=== PATIENT | female | born 1945 | race Hispanic/Latino ===

== ENCOUNTER → 2018-02-25 | Outpatient (CLI) | payer OTHER | END | disposition home or self-care (01) | LOC: RAH 09:08 | PROVIDERS: ATTEND Family Medicine | DX: Z12.31 Encounter for screening mammogram for malignant neoplasm of breast (principal) | CPT/HCPCS: 77067 ==

== ENCOUNTER → 2019-09-19 | Outpatient (CLI) | payer OTHER | END | disposition home or self-care (01) | LOC: RAH 08:58 | PROVIDERS: ATTEND Internal Medicine Gastroenterology | DX: K83.8 Other specified diseases of biliary tract (principal); R59.0 Localized enlarged lymph nodes | CPT/HCPCS: 76700 ==

== ENCOUNTER 2019-10-27 19:59 | Inpatient (IN) | payer OTHER ==
[~2019-10-27] VITALS: Ht 152.4 cm; Wt 51.0 kg
[2019-10-27] MEDS ORDERED: ACETAMINOPHEN 650 MG SUPPOSITORY RC ONE (20:13)
[2019-10-27 20:26] LABS: BASOPHILS % (AUTO) 0.2 % (0.0-5.0); HEMATOCRIT 38.9 % (36-48); MEAN CORPUSCULAR HEMOGLOBIN 28.6 pg (27.0-33.0); MEAN CORPUSCULAR HGB CONC 32.1 g/dL (32.0-36.0); MONOCYTES % (AUTO) 6.6 % (3.0-13.0); NEUTROPHILS % (AUTO) 82.6 % (40.0-77.0); PLATELET COUNT (AUTO) 310 K/uL (130-400); RED BLOOD CELL COUNT(AUTO) 4.37 MIL/uL (4.00-5.50); RED CELL DISTRIBUTION WIDTH 14.1 % (11.0-15.5)
[2019-10-27] MEDS ORDERED: VANCOMYCIN 1GM+NS 250ML 250 ML IV ONE (20:38)
[2019-10-27 20:42] LABS: INR 1.01 (0.85-1.15); PARTIAL THROMBOPLASTIN TIME 23.2 SEC (26.3-35.5); PROTHROMBIN TIME 10.9 SEC (9.6-11.6)
[2019-10-27 21:24] LABS: ALANINE AMINOTRANSFERASE 20 U/L (12-78); ALBUMIN 3.9 g/dL (3.5-5.0); ASPARTATE AMINOTRANSFERASE 37 U/L (10-37); BILIRUBIN,TOTAL 0.8 mg/dL (0.2-1.0); CARBON DIOXIDE 25 mmol/L (21-32); CHLORIDE 115 mmol/L (101-111); CREATINE KINASE, TOTAL 15 U/L (21-232); CREATININE 1.5 mg/dL (0.5-1.5); GLOMERULAR FILTR. RATE CALC 36 mL/min (>60); GLUCOSE,RANDOM 155 mg/dL (70-105); MYOGLOBIN 111 ng/mL (10-92); TROPONIN I < 0.04 ng/mL (0.00-0.06); UREA NITROGEN, BLOOD 42 mg/dL (7-18)
[2019-10-27 21:27] LABS: POTASSIUM 2.6 mmol/L (3.5-5.1); SODIUM SERUM 161 mmol/L (136-145)
[2019-10-27] MEDS ORDERED: ZOSYN 3.375GM+NS 50ML 50 ML IV ONE (21:36)
[2019-10-27] MEDS ORDERED: LACTATED RINGERS 1000ML 1,000 ML IV SCH (21:55)
[2019-10-27] MEDS ORDERED: VANCOMYCIN PROTOCOL PER PHARMACY IV PRN (22:00)
[2019-10-27] MEDS ORDERED: NITROGLYCERIN 0.4 MG SL TAB SL PRN (22:00)
[2019-10-27] MEDS: METRONIDAZOLE 500MG/100ML BAG 100 ML IVPB SCH (22:00)
[2019-10-27] MEDS ORDERED: ACETAMINOPHEN 325 MG TAB PO PRN ×2 (22:00)
[2019-10-27] MEDS ORDERED: MAG HYDROX/AL HYDROX/SIMETH ES 30 ML SUSP UDCUP PO PRN (22:00)
[2019-10-27] MEDS ORDERED: DIPHENHYDRAMINE HCL 25 MG CAPSULE PO PRN (22:00)
[2019-10-27] MEDS ORDERED: LIDOCAINE HCL 2% VISCOUS 30 ML, MAG HYDROX/AL HYDROX/SIMETH 30 ML, BELLADONNA-PHENOBARB... PO PRN ×3 (22:00)
[2019-10-27] MEDS ORDERED: GUAIFENESIN-DM 200/20 MG 10 ML PO PRN (22:00)
[2019-10-27] MEDS ORDERED: ZOLPIDEM TARTRATE 5 MG TAB PO PRN (22:00)
[2019-10-27] MEDS ORDERED: DiphenhydrAMINE HCL 50 MG/ML VIAL IV PRN (22:00)
[2019-10-27] MEDS ORDERED: BENZONATATE 100 MG CAPSULE PO PRN (22:00)
[2019-10-27] MEDS ORDERED: MORPHINE SULFATE 2 MG/ML 1ML SYG IV PRN (22:00)
[2019-10-27] MEDS ORDERED: MORPHINE SULFATE 4 MG/1ML SYG IV PRN (22:00)
[2019-10-27] MEDS ORDERED: MAG HYDROX/AL HYDROX/SIMETH 30 ML, LIDOCAINE HCL 2% VISCOUS 30 ML, DIPHENHYDRAMINE HCL ... PO PRN ×3 (22:00)
[2019-10-27] MEDS ORDERED: LACTULOSE 20 GM/30 ML UDCUP PO PRN (22:00)
[2019-10-27] MEDS ORDERED: ONDANSETRON HCL 4 MG/2 ML VIAL IV PRN (22:00)
[2019-10-27] MEDS ORDERED: POTASSIUM BICARB/CIT AC 25 MEQ TABLET.EFF ONE (22:22)
[2019-10-27] MEDS: POTASSIUM CHLORIDE 10% ELIXIR 20 MEQ/15 ML UDCUP PEG SCH (22:30)
[2019-10-27] MEDS ORDERED: POTASSIUM CHLORIDE 10% ELIXIR 20 MEQ/15 ML UDCUP ONE (22:42)
[2019-10-27] MEDS ORDERED: POTASSIUM CHLORIDE 20MEQ/100ML 100 ML IV ONE (22:42)
[2019-10-27] MEDS ORDERED: LACTATED RINGERS 1000ML 1,000 ML IV ONE (22:43)
[2019-10-27] MEDS ORDERED: METRONIDAZOLE 500MG/100ML BAG 100 ML ONE (22:43)
[2019-10-27] MEDS ORDERED: CEFEPIME HCL 2 GM VIAL ONE (23:17)
[2019-10-28] MEDS: CEFEPIME HCL 1 GM VIAL IVP SCH
[2019-10-28 00:42] LABS: CREATININE 1.4 mg/dL (0.5-1.5); POTASSIUM 3.5 mmol/L (3.5-5.1)
[2019-10-28] MEDS ORDERED: ONDANSETRON HCL 4 MG/2 ML VIAL ONE (01:43)
[2019-10-28 01:57] LABS: APPEARANCE,URINE Clear (CLEAR); BILIRUBIN,URINE Negative (NEGATIVE); COLOR,URINE Yellow (YELLOW); GLUCOSE, URINE (UA) Negative (NEGATIVE); KETONES,URINE 15 mg/dL (NEGATIVE); LEUKOCYTE ESTERASE ,URINE Small (NEGATIVE); NITRATE,URINE Negative (NEGATIVE); OCCULT BLOOD,URINE Negative (NEGATIVE); PROTEIN,URINE POS 1+ mg/dL (NEGATIVE); UROBILINOGEN,URINE 0.2 mg/dL (0.2-1.0)
[2019-10-28 02:13] LABS: BACTERIA,URINE None Seen /HPF (None Seen); RBC,URINE None Seen /HPF (0-1); SQUAMOUS EPITHELIAL CELL,UR Rare /HPF (0-2); WBC,URINE 0-1 /HPF (0-1)
[2019-10-28 05:25] LABS: BASOPHILS % (AUTO) 0.3 % (0.0-5.0); HEMATOCRIT 31.7 % (36-48); LYMPHOCYTES % (AUTO) 10.5 % (21.0-51.0); MEAN CORPUSCULAR HEMOGLOBIN 29.1 pg (27.0-33.0); MEAN CORPUSCULAR HGB CONC 32.2 g/dL (32.0-36.0); MEAN CORPUSCULAR VOLUME 90.3 fL (79-99); MONOCYTES % (AUTO) 7.6 % (3.0-13.0); PLATELET COUNT (AUTO) 212 K/uL (130-400); RED BLOOD CELL COUNT(AUTO) 3.51 MIL/uL (4.00-5.50); RED CELL DISTRIBUTION WIDTH 14.3 % (11.0-15.5); WHITE BLOOD COUNT (AUTO) 11.3 K/uL (4.8-10.8)
[2019-10-28 05:50] LABS: ALBUMIN 2.9 g/dL (3.5-5.0); BILIRUBIN,TOTAL 0.8 mg/dL (0.2-1.0); MAGNESIUM 2.1 mg/dL (1.80-2.40); PHOSPHORUS 1.9 mg/dL (2.5-4.9); POTASSIUM 4.2 mmol/L (3.5-5.1); TOTAL PROTEIN, SERUM 6.1 g/dL (6.0-8.3)
[2019-10-28] MEDS: METRONIDAZOLE 500MG/100ML BAG 100 ML IVPB SCH ×3 (06:00→21:56)
[2019-10-28] MEDS: HEPARIN SODIUM 5000UNIT/ML 1ML VIAL SQ SCH ×3 (06:00→22:32)
[2019-10-28] MEDS ORDERED: METRONIDAZOLE 500MG/100ML BAG 100 ML ONE ×2 (06:00→13:43)
[2019-10-28] MEDS ORDERED: HEPARIN SODIUM 5000UNIT/ML 1ML VIAL ONE ×2 (07:19→13:43)
[2019-10-28] MEDS ORDERED: FAMOTIDINE/PF 20 MG/2 ML VIAL IV ONE (08:11)
[2019-10-28] MEDS ORDERED: FAMOTIDINE/PF 20 MG/2 ML VIAL IV SCH (09:00)
[2019-10-28] MEDS: DEXTROSE 5%-WATER 1,000 ML IV SCH ×2 (09:00→22:20)
[2019-10-28] MEDS ORDERED: CEFEPIME HCL 2 GM VIAL ONE (09:18)
[2019-10-28] MEDS ORDERED: DEXTROSE 5 % AND 0.9 % NACL 1,000 ML IV ONE (09:22)
[2019-10-28] MEDS ORDERED: SODIUM CHLORIDE 0.9% 50 ML IV ONE (09:23)
[2019-10-28] MEDS: FAMOTIDINE/PF 20 MG/2 ML VIAL IV SCH ×2 (09:45→21:57)
[2019-10-28] MEDS: CHLORHEXIDINE GLUCONATE 473 ML MOUTHWASH MM SCH ×4 (11:58→21:59)
[2019-10-28] MEDS ORDERED: POTASSIUM CHLORIDE 20MEQ/100ML 100 ML IV PRN (14:30)
[2019-10-28] MEDS ORDERED: LIDOCAINE HCL-MPF 1% 2ML VIAL IV PRN (14:30)
[2019-10-28] MEDS ORDERED: PHARMACY COMMUNICATION MISC SCH (14:30)
[2019-10-28 15:55] LABS: CREATININE 0.9 mg/dL (0.5-1.5); POTASSIUM 3.3 mmol/L (3.5-5.1)
[2019-10-28] MEDS ORDERED: PAMIDRONATE DISODIUM 90MG VIAL 90 MG in SODIUM CHLORIDE 0.9% 1000ML 1,000 ML IV ONE (16:00)
[2019-10-28] MEDS ORDERED: COMPOUND IV REFRIGERATED 1 EACH IVSOLN MISC PRN (16:45)
[2019-10-28 17:29] VITALS: BP 136/51
[2019-10-28] MEDS: VANCOMYCIN 750MG + NS 250 ML IV SCH ×2 (18:36)
--- NOTE | 2019-10-28 19:07 | NUR ---
INITIAL: Spoke w pt via phone. Pt mentions that prior to admission she was living alone but her sister in law would come by during the day. She uses a cane for ambulation and was independent w ADLs. Per pt her family provides transportation where needed. Pt mentions that she plans to stay w her brother Crescencio Orourke [phone] at ri. CM to continue to follow and wait for Md recommendations. Addendum: 10/29/19 at 1910 by TAMIKO PAGE Amended: Links added.
[2019-10-28 19:50] VITALS: BP 129/61
[2019-10-28] MEDS: POTASSIUM CHLORIDE 20MEQ/100ML 100 ML IV PRN (21:56)
[2019-10-28 22:02] LABS: CREATININE 0.9 mg/dL (0.5-1.5); POTASSIUM 3.1 mmol/L (3.5-5.1)
[2019-10-28] MEDS: POTASSIUM CHLORIDE 10% ELIXIR 20 MEQ/15 ML UDCUP PEG SCH (22:30)
[2019-10-28 23:41] VITALS: BP 144/60
[2019-10-29 04:00] VITALS: BP 153/69
[2019-10-29] MEDS: METRONIDAZOLE 500MG/100ML BAG 100 ML IVPB SCH ×3 (05:11→22:35)
[2019-10-29 05:16] LABS: BASOPHILS % (AUTO) 0.4 % (0.0-5.0); EOSINOPHILS % (AUTO) 0.4 % (0.0-8.0); HEMATOCRIT 35.8 % (36-48); LYMPHOCYTES % (AUTO) 13.3 % (21.0-51.0); MEAN CORPUSCULAR HEMOGLOBIN 28.8 pg (27.0-33.0); MEAN CORPUSCULAR HGB CONC 31.6 g/dL (32.0-36.0); MEAN CORPUSCULAR VOLUME 91.3 fL (79-99); MONOCYTES % (AUTO) 6.1 % (3.0-13.0); NEUTROPHILS % (AUTO) 79.2 % (40.0-77.0); PLATELET COUNT (AUTO) 226 K/uL (130-400); RED BLOOD CELL COUNT(AUTO) 3.92 MIL/uL (4.00-5.50); RED CELL DISTRIBUTION WIDTH 14.3 % (11.0-15.5); WHITE BLOOD COUNT (AUTO) 9.9 K/uL (4.8-10.8)
[2019-10-29 05:44] LABS: ALBUMIN 2.7 g/dL (3.5-5.0); BILIRUBIN,TOTAL 0.3 mg/dL (0.2-1.0); CREATININE 0.8 mg/dL (0.5-1.5); MAGNESIUM 1.9 mg/dL (1.80-2.40); PHOSPHORUS 1.2 mg/dL (2.5-4.9); POTASSIUM 3.2 mmol/L (3.5-5.1); THYROID STIMULATING HORMONE 0.88 uIU/mL (0.36-3.74); TOTAL PROTEIN, SERUM 5.7 g/dL (6.0-8.3)
[2019-10-29] MEDS: DEXTROSE 5%-WATER 1,000 ML IV SCH (05:45)
[2019-10-29] MEDS: VANCOMYCIN 750MG + NS 250 ML IV SCH ×4 (05:46→17:29)
[2019-10-29] MEDS: HEPARIN SODIUM 5000UNIT/ML 1ML VIAL SQ SCH ×3 (05:51→22:38)
[2019-10-29 08:39] VITALS: BP 139/59
[2019-10-29] MEDS: CHLORHEXIDINE GLUCONATE 473 ML MOUTHWASH MM SCH ×4 (09:00→21:05)
[2019-10-29] MEDS: THIAMINE HCL 100 MG/ML 2ML VIAL IVP SCH (10:00)
[2019-10-29] MEDS: CEFEPIME HCL 1 GM VIAL IVP SCH ×2 (10:00)
[2019-10-29] MEDS: FAMOTIDINE/PF 20 MG/2 ML VIAL IV SCH ×2 (10:00→20:55)
[2019-10-29 11:46] VITALS: BP 118/75
--- NOTE | 2019-10-29 12:00 | NUR ---
EDUCATED ON ADM OF FEEDING VIA PEG TUBE, VERBALIZES UNDERSTANDING AND GAVE A RETURN DEMONSTRATION WITH LITTLE ASST. 260 ML OF FREE WATER 4 TIMES HAS BEEN ADDED BY DR. POWELL TO BRING DOWN SODIUM LEVELS. EXPLAINED TO PT. AND UNDERSTANDS.
[2019-10-29] MEDS ORDERED: POTASSIUM PHOS 15 mMOL+NS250ML 250 ML IV PRN (14:00)
[2019-10-29 16:16] VITALS: BP 144/65
[2019-10-29 19:45] VITALS: BP 140/61
[2019-10-29] MEDS: POTASSIUM CHLORIDE 10% ELIXIR 20 MEQ/15 ML UDCUP PEG SCH (22:30)
[2019-10-29 23:48] VITALS: BP 144/67
[2019-10-30] MEDS: DEXTROSE 5%-WATER 1,000 ML IV SCH ×3 (02:30→22:30)
[2019-10-30 03:48] VITALS: BP 119/54
[2019-10-30 04:46] LABS: BASOPHILS % (AUTO) 0.4 % (0.0-5.0); HEMATOCRIT 31.2 % (36-48); LYMPHOCYTES % (AUTO) 19.7 % (21.0-51.0); MEAN CORPUSCULAR HEMOGLOBIN 28.7 pg (27.0-33.0); MEAN CORPUSCULAR HGB CONC 32.1 g/dL (32.0-36.0); MEAN CORPUSCULAR VOLUME 89.4 fL (79-99); MONOCYTES % (AUTO) 5.2 % (3.0-13.0); NEUTROPHILS % (AUTO) 70.7 % (40.0-77.0); PLATELET COUNT (AUTO) 187 K/uL (130-400); RED BLOOD CELL COUNT(AUTO) 3.49 MIL/uL (4.00-5.50); RED CELL DISTRIBUTION WIDTH 14.1 % (11.0-15.5); WHITE BLOOD COUNT (AUTO) 7.7 K/uL (4.8-10.8)
[2019-10-30 05:00] LABS: ALBUMIN 2.3 g/dL (3.5-5.0); BILIRUBIN,TOTAL 0.2 mg/dL (0.2-1.0); CREATININE 0.7 mg/dL (0.5-1.5); MAGNESIUM 1.5 mg/dL (1.80-2.40); PHOSPHORUS 2.3 mg/dL (2.5-4.9); TOTAL PROTEIN, SERUM 4.7 g/dL (6.0-8.3)
[2019-10-30] MEDS: VANCOMYCIN 750MG + NS 250 ML IV SCH ×4 (05:48→18:44)
[2019-10-30] MEDS: METRONIDAZOLE 500MG/100ML BAG 100 ML IVPB SCH ×3 (05:49→22:07)
[2019-10-30 05:56] LABS: POTASSIUM 2.3 mmol/L (3.5-5.1)
[2019-10-30] MEDS: HEPARIN SODIUM 5000UNIT/ML 1ML VIAL SQ SCH ×2 (05:57→17:34)
[2019-10-30] MEDS: POTASSIUM CHLORIDE 20MEQ/100ML 100 ML IV PRN ×2 (06:02→11:13)
--- NOTE | 2019-10-30 07:55 | NUR ---
MAG =1.5 notified Pj Montes UNLOADING CHECKER ordered mag protocol PEG TUBE SITE cleansed area with clora prep placed 2x2 and tape explained to pt mag low will give iv ,voices understanding states she is having diarrhea with current feeding ,dietary consult in place( pending new order) pt does not want current feeding Nephro with carbsteady due to diarrhea,pt states what is the purpose of feeding? I am not holding anything in my stomach ,explained a dietary consult in place ,voices understanding
[2019-10-30 08:15] VITALS: BP 135/63
[2019-10-30] MEDS: CEFEPIME HCL 1 GM VIAL IVP SCH (10:55)
[2019-10-30] MEDS: FAMOTIDINE/PF 20 MG/2 ML VIAL IV SCH ×2 (10:56→20:45)
[2019-10-30] MEDS: THIAMINE HCL 100 MG/ML 2ML VIAL IVP SCH (10:56)
[2019-10-30] MEDS: CHLORHEXIDINE GLUCONATE 473 ML MOUTHWASH MM SCH ×4 (10:57→20:46)
[2019-10-30] MEDS: MAGNESIUM 2GM PREMIX 50ML 50 ML IV PRN (10:59)
--- NOTE | 2019-10-30 11:14 | NUR ---
RD NOTIFICATION - TUBE FEEDING Recommend Continuous Jevity 1.5 TF initiated at 25mls/hr. Goal 40mls/hr Recommend H2O flushes at 200ml Q4hrs. Recommendations faxed to Noemí RN notified. NUTRITION NOTE: Pt admitted with Sepsis and dehydration. PEG placement, Pt with throat CA. Previous tube feeding, Nepro, not tolerated; Pt with Diarrhea, TF held since yesterday. GFR with improving trend, current 87. Recommend Jevity 1.5 with fiber, probiotics, improved electrolytes and hydration. RD to continue to monitor. Please notify as additional nutrition concerns arise. Thank you. Addendum: 10/30/19 at [address] Amended: Links added.
--- NOTE | 2019-10-30 12:00 | NUR ---
FREE WATER 250 ml water via gravity thru peg tube
[2019-10-30 15:00] VITALS: BP 136/61
--- NOTE | 2019-10-30 17:04 | NUR ---
FREE WATER 250ml of water in the peg tube via gravity
[2019-10-30 17:42] VITALS: BP 136/63
--- NOTE | 2019-10-30 17:55 | NUR ---
RECEIVED JEVITY 1.5 STARTED @25 ML/HR via pump
[2019-10-30 20:16] VITALS: BP 125/54
[2019-10-30] MEDS: POTASSIUM CHLORIDE 10% ELIXIR 20 MEQ/15 ML UDCUP PEG SCH (20:45)
[2019-10-31 00:16] VITALS: BP 118/56
[2019-10-31] MEDS: HEPARIN SODIUM 5000UNIT/ML 1ML VIAL SQ SCH ×5 (02:30→22:02)
[2019-10-31 04:14] VITALS: BP 125/57
[2019-10-31 04:33] LABS: MAGNESIUM 1.8 mg/dL (1.80-2.40)
[2019-10-31 04:36] LABS: POTASSIUM 2.4 mmol/L (3.5-5.1)
[2019-10-31] MEDS: VANCOMYCIN 750MG + NS 250 ML IV SCH ×4 (05:00→18:00)
[2019-10-31] MEDS: POTASSIUM CHLORIDE 20MEQ/100ML 100 ML IV PRN ×2 (05:02→11:35)
[2019-10-31] MEDS: LIDOCAINE HCL-MPF 1% 2ML VIAL IJ PRN ×2 (05:03→11:38)
[2019-10-31] MEDS: METRONIDAZOLE 500MG/100ML BAG 100 ML IVPB SCH ×3 (06:07→21:58)
[2019-10-31 08:48] VITALS: BP 111/49
[2019-10-31] MEDS: MAGNESIUM 2GM PREMIX 50ML 50 ML IV PRN (11:26)
[2019-10-31] MEDS: DEXTROSE 5%-WATER 1,000 ML IV SCH (11:32)
[2019-10-31] MEDS: CEFEPIME HCL 1 GM VIAL IVP SCH (11:33)
[2019-10-31] MEDS: CHLORHEXIDINE GLUCONATE 473 ML MOUTHWASH MM SCH ×4 (11:36→22:23)
[2019-10-31] MEDS: POTASSIUM CHLORIDE 10% ELIXIR 20 MEQ/15 ML UDCUP PEG SCH ×2 (11:37→22:02)
[2019-10-31] MEDS: FAMOTIDINE/PF 20 MG/2 ML VIAL IV SCH ×2 (11:38→21:58)
[2019-10-31 11:40] VITALS: BP 107/51
[2019-10-31] MEDS: THIAMINE HCL 100 MG/ML 2ML VIAL IVP SCH (11:51)
[2019-10-31 12:32] LABS: CREATININE 0.8 mg/dL (0.5-1.5)
[2019-10-31 12:45] LABS: POTASSIUM 2.8 mmol/L (3.5-5.1)
[2019-10-31 16:55] VITALS: BP 115/42
[2019-10-31 17:43] LABS: CREATININE,URINE RANDOM 12 mg/dL (30-135); POTASSIUM,URINE RANDOM 15 mmol/L (25-125); SODIUM,URINE RANDOM 21 mmol/l (40-220)
[2019-10-31 20:05] VITALS: BP 122/58
[2019-10-31 23:57] LABS: MAGNESIUM 2.2 mg/dL (1.80-2.40); POTASSIUM 3.6 mmol/L (3.5-5.1)
[2019-11-01] VITALS (7 sets, daily range): BP systolic 92–119; BP diastolic 37–54
[2019-11-01] MEDS: METRONIDAZOLE 500MG/100ML BAG 100 ML IVPB SCH ×3 (04:56→21:40)
[2019-11-01] MEDS: VANCOMYCIN 750MG + NS 250 ML IV SCH ×4 (05:04→21:40)
[2019-11-01] MEDS: HEPARIN SODIUM 5000UNIT/ML 1ML VIAL SQ SCH ×3 (05:04→22:02)
[2019-11-01] MEDS: POTASSIUM CHLORIDE 10% ELIXIR 20 MEQ/15 ML UDCUP PEG SCH ×2 (05:05→21:40)
[2019-11-01 05:56] LABS: BASOPHILS % (AUTO) 0.7 % (0.0-5.0); EOSINOPHILS % (AUTO) 6.8 % (0.0-8.0); HEMATOCRIT 28.1 % (36-48); LYMPHOCYTES % (AUTO) 17.6 % (21.0-51.0); MEAN CORPUSCULAR HEMOGLOBIN 28.4 pg (27.0-33.0); MEAN CORPUSCULAR HGB CONC 32.7 g/dL (32.0-36.0); MEAN CORPUSCULAR VOLUME 86.7 fL (79-99); MONOCYTES % (AUTO) 6.8 % (3.0-13.0); PLATELET COUNT (AUTO) 148 K/uL (130-400); RED BLOOD CELL COUNT(AUTO) 3.24 MIL/uL (4.00-5.50); RED CELL DISTRIBUTION WIDTH 13.2 % (11.0-15.5); WHITE BLOOD COUNT (AUTO) 5.6 K/uL (4.8-10.8)
[2019-11-01 06:14] LABS: CREATININE 0.7 mg/dL (0.5-1.5); POTASSIUM 3.6 mmol/L (3.5-5.1)
[2019-11-01] MEDS: DEXTROSE 5%-WATER 1,000 ML IV SCH ×2 (08:54→14:30)
[2019-11-01] MEDS: FAMOTIDINE/PF 20 MG/2 ML VIAL IV SCH ×2 (08:56→21:38)
[2019-11-01] MEDS: THIAMINE HCL 100 MG/ML 2ML VIAL IVP SCH (08:58)
[2019-11-01] MEDS: CEFEPIME HCL 1 GM VIAL IVP SCH (08:58)
[2019-11-01] MEDS: CHLORHEXIDINE GLUCONATE 473 ML MOUTHWASH MM SCH ×4 (08:59→21:00)
--- NOTE | 2019-11-01 12:00 | NUR ---
CM Note: [facility] pending approval CM met with pt discussed MD recommendations for placement, pt agreeable, YOBANI signed for [facility]. Faxed order, clinicals, PASRR, Covid Transfer form, confirmation received. Spoke to Melinda Poon, made aware pending covid result, will send once available dcp once approved. Pt pending approval at this time. EMS arranged for today, primary nurse to call [facility] once pt ready to DC. Primary nurse aware. CM to cont to follow up.
[2019-11-02] MEDS: DEXTROSE 5%-WATER 1,000 ML IV SCH ×2 (02:01→14:02)
[2019-11-02 03:46] VITALS: BP 114/57
[2019-11-02] MEDS: METRONIDAZOLE 500MG/100ML BAG 100 ML IVPB SCH ×3 (05:58→23:02)
[2019-11-02] MEDS: HEPARIN SODIUM 5000UNIT/ML 1ML VIAL SQ SCH ×3 (05:59→22:30)
[2019-11-02 08:00] VITALS: BP 119/52
[2019-11-02] MEDS: CHLORHEXIDINE GLUCONATE 473 ML MOUTHWASH MM SCH ×4 (10:55→23:04)
[2019-11-02] MEDS: THIAMINE HCL 100 MG/ML 2ML VIAL IVP SCH (10:56)
[2019-11-02] MEDS: FAMOTIDINE/PF 20 MG/2 ML VIAL IV SCH ×2 (10:56→20:48)
[2019-11-02] MEDS: POTASSIUM CHLORIDE 10% ELIXIR 20 MEQ/15 ML UDCUP PEG SCH ×2 (10:57→20:49)
[2019-11-02] MEDS: CEFEPIME HCL 1 GM VIAL IVP SCH (10:57)
[2019-11-02] MEDS: VANCOMYCIN 750MG + NS 250 ML IV SCH ×4 (10:57→23:00)
[2019-11-02 11:00] VITALS: BP 129/52
[2019-11-02 16:00] VITALS: BP 110/47
[2019-11-02 20:53] VITALS: BP 113/51
[2019-11-03 00:23] VITALS: BP 117/50
[2019-11-03 03:52] VITALS: BP 111/55
[2019-11-03 06:20] LABS: CREATININE 0.6 mg/dL (0.5-1.5); MAGNESIUM 1.8 mg/dL (1.80-2.40); POTASSIUM 4.2 mmol/L (3.5-5.1)
[2019-11-03] MEDS: METRONIDAZOLE 500MG/100ML BAG 100 ML IVPB SCH ×2 (06:29→14:23)
[2019-11-03] MEDS: DEXTROSE 5%-WATER 1,000 ML IV SCH ×3 (06:29→16:56)
[2019-11-03] MEDS: HEPARIN SODIUM 5000UNIT/ML 1ML VIAL SQ SCH ×3 (06:30→21:20)
[2019-11-03 08:00] VITALS: BP 117/50
[2019-11-03] MEDS: VANCOMYCIN 750MG + NS 250 ML IV SCH ×4 (09:00→21:05)
[2019-11-03] MEDS: POTASSIUM CHLORIDE 10% ELIXIR 20 MEQ/15 ML UDCUP PEG SCH ×2 (11:39→21:05)
[2019-11-03] MEDS: THIAMINE HCL 100 MG/ML 2ML VIAL IVP SCH (11:39)
[2019-11-03] MEDS: CHLORHEXIDINE GLUCONATE 473 ML MOUTHWASH MM SCH ×4 (11:39→21:06)
[2019-11-03] MEDS: FAMOTIDINE/PF 20 MG/2 ML VIAL IV SCH ×2 (11:40→21:05)
[2019-11-03] MEDS: CEFEPIME HCL 1 GM VIAL IVP SCH (11:40)
[2019-11-03 12:00] VITALS: BP 109/50
--- NOTE | 2019-11-03 12:16 | NUR ---
CM NOTE/[facility] PEND AUTH PER BIANKA AT [facility], PENDING AUTHORIZATION. COVID RESULTS OUT, EMAILED TO BIANKA, CONFIRMED RECEIVED. BIANKA TO CALL THIS CM IF AUTHORIZATION RECEIVED. POSSIBLE DISCHARGE TODAY.
[2019-11-03 16:00] VITALS: BP 111/49
[2019-11-03 20:00] VITALS: BP 112/52
[2019-11-04] VITALS (7 sets, daily range): BP systolic 114–137; BP diastolic 50–66
[2019-11-04] MEDS: DEXTROSE 5%-WATER 1,000 ML IV SCH ×3 (05:31→22:35)
[2019-11-04] MEDS: HEPARIN SODIUM 5000UNIT/ML 1ML VIAL SQ SCH ×3 (05:57→22:06)
--- NOTE | 2019-11-04 11:20 | NUR ---
Dr oMreira aware of consult added to consult list
[2019-11-04] MEDS: FAMOTIDINE/PF 20 MG/2 ML VIAL IV SCH ×2 (11:30→22:07)
[2019-11-04] MEDS: VANCOMYCIN 750MG + NS 250 ML IV SCH ×6 (11:31→22:07)
[2019-11-04] MEDS: CEFEPIME HCL 1 GM VIAL IVP SCH (11:31)
[2019-11-04] MEDS: THIAMINE HCL 100 MG/ML 2ML VIAL IVP SCH (11:31)
[2019-11-04] MEDS: POTASSIUM CHLORIDE 10% ELIXIR 20 MEQ/15 ML UDCUP PEG SCH ×2 (11:32→22:07)
[2019-11-04] MEDS: CHLORHEXIDINE GLUCONATE 473 ML MOUTHWASH MM SCH ×4 (11:51→22:07)
--- NOTE | 2019-11-04 14:33 | NUR ---
[facility] Received notification from Melinda Vela that they have received ins auth for admission to their facility. Primary nurse/CN and INDEPENDENT FREIGHT AGENT notified. Bed avail today.
[2019-11-05 03:28] VITALS: BP 116/50
[2019-11-05 05:44] LABS: BASOPHILS % (AUTO) 0.3 % (0.0-5.0); HEMATOCRIT 27.7 % (36-48); LYMPHOCYTES % (AUTO) 16.5 % (21.0-51.0); MEAN CORPUSCULAR HEMOGLOBIN 29.4 pg (27.0-33.0); MEAN CORPUSCULAR HGB CONC 32.1 g/dL (32.0-36.0); MEAN CORPUSCULAR VOLUME 91.4 fL (79-99); MONOCYTES % (AUTO) 11.3 % (3.0-13.0); NEUTROPHILS % (AUTO) 64.7 % (40.0-77.0); PLATELET COUNT (AUTO) 198 K/uL (130-400); RED BLOOD CELL COUNT(AUTO) 3.03 MIL/uL (4.00-5.50); RED CELL DISTRIBUTION WIDTH 14.2 % (11.0-15.5); WHITE BLOOD COUNT (AUTO) 6.7 K/uL (4.8-10.8)
[2019-11-05] MEDS: HEPARIN SODIUM 5000UNIT/ML 1ML VIAL SQ SCH ×3 (05:55→22:42)
[2019-11-05 06:11] LABS: ALBUMIN 2.3 g/dL (3.5-5.0); BILIRUBIN,TOTAL 0.2 mg/dL (0.2-1.0); CREATININE 0.8 mg/dL (0.5-1.5); POTASSIUM 4.3 mmol/L (3.5-5.1); TOTAL PROTEIN, SERUM 4.9 g/dL (6.0-8.3); VANCOMYCIN LEVEL 18.8 mcg/mL (18.0-26.0)
[2019-11-05 08:00] VITALS: BP 101/52
[2019-11-05] MEDS: VANCOMYCIN 750MG + NS 250 ML IV SCH ×4 (09:00→22:41)
[2019-11-05] MEDS: CHLORHEXIDINE GLUCONATE 473 ML MOUTHWASH MM SCH ×4 (09:00→22:41)
[2019-11-05] MEDS: THIAMINE HCL 100 MG/ML 2ML VIAL IVP SCH (09:00)
--- NOTE | 2019-11-05 09:00 | NUR ---
VANCOMYCIN AM dose of Vancomycin on hold due to elevated trough repeat trough at 1999 fax to pharmacy when results are in
[2019-11-05 11:00] VITALS: BP 121/52
[2019-11-05] MEDS: DEXTROSE 5%-WATER 1,000 ML IV SCH ×2 (11:34→17:24)
[2019-11-05] MEDS: MAGNESIUM 2GM PREMIX 50ML 50 ML IV PRN (11:34)
[2019-11-05] MEDS: CEFEPIME HCL 1 GM VIAL IVP SCH (11:35)
[2019-11-05] MEDS: FAMOTIDINE/PF 20 MG/2 ML VIAL IV SCH ×2 (11:35→22:43)
[2019-11-05] MEDS: POTASSIUM CHLORIDE 10% ELIXIR 20 MEQ/15 ML UDCUP PEG SCH ×2 (11:38→22:40)
[2019-11-05 16:00] VITALS: BP 119/92
[2019-11-05 18:32] VITALS: BP 136/64
[2019-11-05 19:42] VITALS: BP 133/58
[2019-11-06 00:09] VITALS: BP 131/63
[2019-11-06 04:10] VITALS: BP 124/51
[2019-11-06] MEDS: DEXTROSE 5%-WATER 1,000 ML IV SCH ×2 (04:23→14:30)
[2019-11-06] MEDS: HEPARIN SODIUM 5000UNIT/ML 1ML VIAL SQ SCH ×3 (05:44→22:38)
[2019-11-06 08:00] VITALS: BP 126/48
[2019-11-06] MEDS: POTASSIUM CHLORIDE 10% ELIXIR 20 MEQ/15 ML UDCUP PEG SCH ×2 (10:26→22:21)
[2019-11-06] MEDS: FAMOTIDINE/PF 20 MG/2 ML VIAL IV SCH ×2 (10:26→22:21)
[2019-11-06] MEDS: THIAMINE HCL 100 MG/ML 2ML VIAL IVP SCH (10:27)
[2019-11-06] MEDS: CEFEPIME HCL 1 GM VIAL IVP SCH (10:28)
[2019-11-06] MEDS: CHLORHEXIDINE GLUCONATE 473 ML MOUTHWASH MM SCH ×4 (10:52→22:27)
[2019-11-06] MEDS: VANCOMYCIN 750MG + NS 250 ML IV SCH ×4 (10:57→22:26)
[2019-11-06 11:35] VITALS: BP 142/53
[2019-11-06 16:00] VITALS: BP 126/49
[2019-11-06 18:22] LABS: ALBUMIN 2.8 g/dL (3.5-5.0); BILIRUBIN,TOTAL 0.2 mg/dL (0.2-1.0); CREATININE 0.7 mg/dL (0.5-1.5); POTASSIUM 4.7 mmol/L (3.5-5.1); TOTAL PROTEIN, SERUM 6.1 g/dL (6.0-8.3)
[2019-11-06 20:00] VITALS: BP 122/62
[2019-11-07] VITALS (7 sets, daily range): BP systolic 105–132; BP diastolic 38–58
[2019-11-07] MEDS: DEXTROSE 5%-WATER 1,000 ML IV SCH ×3 (00:30→20:30)
[2019-11-07] MEDS: HEPARIN SODIUM 5000UNIT/ML 1ML VIAL SQ SCH ×3 (05:47→21:48)
[2019-11-07] MEDS: POTASSIUM CHLORIDE 10% ELIXIR 20 MEQ/15 ML UDCUP PEG SCH ×2 (09:00→21:00)
[2019-11-07] MEDS: FAMOTIDINE/PF 20 MG/2 ML VIAL IV SCH ×2 (09:19→21:41)
[2019-11-07] MEDS: THIAMINE HCL 100 MG/ML 2ML VIAL IVP SCH (09:19)
[2019-11-07] MEDS: CEFEPIME HCL 1 GM VIAL IVP SCH (09:19)
[2019-11-07] MEDS: VANCOMYCIN 750MG + NS 250 ML IV SCH ×4 (09:20→21:47)
[2019-11-07] MEDS: CHLORHEXIDINE GLUCONATE 473 ML MOUTHWASH MM SCH ×4 (09:24→21:50)
--- NOTE | 2019-11-07 21:40 | NUR ---
MEDS CALLED PHARMACY AND REPORTED VANCO THROUGH LEVEL=20.9. PHARMACIST STATED TO CONTINUE WITH SAME DOSE PREVIOUS. SHIFT ASSESSMENT DONE, PLEASE REFER TO CHART. DUE MEDS ADMINISTERED, TOLERATED WELL. PT ALREADY AWARE OF CT SCAN AND BONE MARROW BX IN AM. KEPT COMFORTABLE AND RESTED IN BED. CALL LIGHT WITHIN REACH. WILL MONITOR PT. Addendum: 11/08/19 at 0105 by ODILIA FIERRO RN RN Amended: Links added.
--- NOTE | 2019-11-08 00:30 | NUR ---
NPO PT ALREADY FAIRLY ASLEEP WITH RESPIRATIONS EVEN AND UNLABORED. WATER FLUSHES GIVEN VIA PEG TUBE THEN CLAMPED TUBE. KEPT NPO FROM NOW. KEPT RESTED AND COMFORTABLE. WILL CONTINUE TO MONITOR.
--- NOTE | 2019-11-08 02:00 | NUR ---
ROUNDS PT RESTING WELL, FAIRLY ASLEEP. NO DISTRESS NOTED. KEPT UNDISTURBED FOR NOW. CALL LIGHT WITHIN REACH. WILL MONITOR PT.
[2019-11-08 04:05] VITALS: BP 138/64
--- NOTE | 2019-11-08 04:20 | NUR ---
IVF PT STILL FAIRLY ASLEEP. NO DISTRESS NOTED. NEW IV TUBING AND IV BAG HUNG. KEPT COMFORTABLE. FOR MORE CARE.
[2019-11-08] MEDS: DEXTROSE 5%-WATER 1,000 ML IV SCH ×3 (04:21→16:41)
[2019-11-08] MEDS: HEPARIN SODIUM 5000UNIT/ML 1ML VIAL SQ SCH ×3 (05:04→22:17)
[2019-11-08 08:52] VITALS: BP 125/52
[2019-11-08] MEDS: POTASSIUM CHLORIDE 10% ELIXIR 20 MEQ/15 ML UDCUP PEG SCH ×2 (09:00→22:16)
[2019-11-08] MEDS: FAMOTIDINE/PF 20 MG/2 ML VIAL IV SCH ×2 (09:51→22:15)
[2019-11-08] MEDS: CHLORHEXIDINE GLUCONATE 473 ML MOUTHWASH MM SCH ×4 (09:52→22:15)
[2019-11-08] MEDS: THIAMINE HCL 100 MG/ML 2ML VIAL IVP SCH (09:52)
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
[2019-11-08] MEDS ORDERED: IOHEXOL 350 MG/ML 100ML INFUS..BTL IV ONE (10:57)
[2019-11-08 11:10] VITALS: BP 108/43
--- NOTE | 2019-11-08 15:00 | NUR ---
CT GD RT ILIAC BONE MARROW BX/ASP PROCEDURE PERFORMED BY DR Davon TORO. PUNCTURE SITE RT BOTTUCK AND PATIENT TOLERATED PROCEDURE WELL. SPECIMEN X 6 COLLECTED AND SENT TO LAB. END OF PROCEDURE AT 1440. BIOPSY NEEDLE REMOVED AND DRESSING APPLIED. NO BLEEDING NOTED. REPORT GIVEN TO Juliette FIELD RN AND PATIENT TRANSPORTED TO [facility] VIA BED AT 1500. AAO X3 WITH NO C/O PAIN.
--- NOTE | 2019-11-08 16:45 | NUR ---
MARINO Note: [facility] pending reaut MARINO spoke to Melinda garcia/[facility], updated clinicals received. Will need reauth. Auth good up to today 11/07 only. Primary nurse aware. CM to cont to follow up.
[2019-11-08 17:20] VITALS: BP 126/60
[2019-11-08 19:28] VITALS: BP 116/55
[2019-11-08 23:30] VITALS: BP 122/63
[2019-11-09] MEDS: DEXTROSE 5%-WATER 1,000 ML IV SCH ×2 (02:48→13:56)
[2019-11-09 03:39] VITALS: BP 106/57
[2019-11-09 04:16] LABS: BASOPHILS % (AUTO) 0.5 % (0.0-5.0); EOSINOPHILS % (AUTO) 6.1 % (0.0-8.0); LYMPHOCYTES % (AUTO) 14.9 % (21.0-51.0); MEAN CORPUSCULAR HEMOGLOBIN 29.8 pg (27.0-33.0); MEAN CORPUSCULAR HGB CONC 32.7 g/dL (32.0-36.0); MEAN CORPUSCULAR VOLUME 91.2 fL (79-99); MONOCYTES % (AUTO) 7.3 % (3.0-13.0); NEUTROPHILS % (AUTO) 70.2 % (40.0-77.0); PLATELET COUNT (AUTO) 279 K/uL (130-400); RED BLOOD CELL COUNT(AUTO) 2.85 MIL/uL (4.00-5.50); RED CELL DISTRIBUTION WIDTH 14.2 % (11.0-15.5); WHITE BLOOD COUNT (AUTO) 5.9 K/uL (4.8-10.8)
[2019-11-09 04:42] LABS: CREATININE 0.8 mg/dL (0.5-1.5); POTASSIUM 3.9 mmol/L (3.5-5.1)
[2019-11-09] MEDS: HEPARIN SODIUM 5000UNIT/ML 1ML VIAL SQ SCH ×2 (06:34→13:58)
[2019-11-09] MEDS: POTASSIUM CHLORIDE 10% ELIXIR 20 MEQ/15 ML UDCUP PEG SCH (09:00)
[2019-11-09 09:42] VITALS: BP 113/48
[2019-11-09] MEDS: FAMOTIDINE/PF 20 MG/2 ML VIAL IV SCH ×2 (10:59→20:40)
[2019-11-09] MEDS: THIAMINE HCL 100 MG/ML 2ML VIAL IVP SCH (10:59)
[2019-11-09] MEDS: CHLORHEXIDINE GLUCONATE 473 ML MOUTHWASH MM SCH ×4 (11:00→20:52)
[2019-11-09 11:36] VITALS: BP 111/50
--- NOTE | 2019-11-09 14:36 | NUR ---
Follow up call to APS as this worker has not yet received a call back from heel cementer machine. SW informed that case has been assigned to Yakelin Jeffers [phone]; numerous calls made to Yakelin; voicemail left to contact this worker if needed.
[2019-11-09 16:43] VITALS: BP 127/58
--- NOTE | 2019-11-09 16:46 | NUR ---
CM Note: [facility] pending reauth CM spoke to Melinda garcia/[facility], requesting to have another PT eval done on pt. Order entered. Pt completed abx but is till weak and would like to get stronger prior to going home. Pending Pt eval and treat at this time, will send notes once available. Pt pending reauth from insurance. Primary nurse aware. CM to cont to follow up.
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
[2019-11-09 20:00] VITALS: BP 124/51
[2019-11-09] MEDS ORDERED: ONDANSETRON 4 MG TABLET PO PRN (20:45)
[2019-11-09 23:43] VITALS: BP 120/75
[2019-11-10] VITALS (12 sets, daily range): BP systolic 116–138; BP diastolic 50–88
[2019-11-10 05:16] LABS: BASOPHILS % (AUTO) 0.7 % (0.0-5.0); EOSINOPHILS % (AUTO) 7.4 % (0.0-8.0); LYMPHOCYTES % (AUTO) 15.9 % (21.0-51.0); MEAN CORPUSCULAR HEMOGLOBIN 29.5 pg (27.0-33.0); MEAN CORPUSCULAR HGB CONC 32.5 g/dL (32.0-36.0); MEAN CORPUSCULAR VOLUME 90.9 fL (79-99); MONOCYTES % (AUTO) 8.6 % (3.0-13.0); NEUTROPHILS % (AUTO) 66.6 % (40.0-77.0); PLATELET COUNT (AUTO) 290 K/uL (130-400); RED BLOOD CELL COUNT(AUTO) 3.08 MIL/uL (4.00-5.50); RED CELL DISTRIBUTION WIDTH 14.6 % (11.0-15.5); WHITE BLOOD COUNT (AUTO) 5.9 K/uL (4.8-10.8)
[2019-11-10 05:28] LABS: CREATININE 0.8 mg/dL (0.5-1.5); POTASSIUM 4.6 mmol/L (3.5-5.1)
[2019-11-10 05:33] LABS: INR 0.92 (0.85-1.15)
--- NOTE | 2019-11-10 06:41 | NUR ---
PATIENT UPDATE KEEPING NPO POST MN, PT GOING FOR PORTACATH PLACEMENT THIS AM. NO COMPLAINTS OF ANY PAIN. VERBALIZED CONCERN ABOUT LOSING HER HAIR WHEN STARTED ON THE CHEMOTHERAPY.
[2019-11-10] MEDS ORDERED: LIDOCAINE HCL 1% MDV 50ML VIAL ONE (08:36)
[2019-11-10] MEDS: CHLORHEXIDINE GLUCONATE 473 ML MOUTHWASH MM SCH ×4 (09:00→21:03)
[2019-11-10] MEDS: THIAMINE HCL 100 MG/ML 2ML VIAL IVP SCH (09:00)
[2019-11-10] MEDS: FAMOTIDINE 20MG TAB 20 MG TAB PO SCH (09:00)
[2019-11-10] MEDS ORDERED: MIDAZOLAM HCL 1 MG/ML 2ML VIAL ONE (09:04)
[2019-11-10] MEDS ORDERED: FENTANYL CITRATE PF 50 MCG/1 ML 2ML VIAL ONE (09:04)
[2019-11-10] MEDS ORDERED: LIDOCAINE 1%-EPI 1:100,000 20 ML VIAL IJ ONE (09:15)
[2019-11-10] MEDS ORDERED: OCTYL 2-CYANOACRYLATE 1 EACH TP ONE (09:36)
--- NOTE | 2019-11-10 10:30 | NUR ---
ERIKA contacted Swetha/[employer] re-pt. assistance with legals; Swetha contacted [employer] and was informed that their contract attorney only assists with transfer of deeds, not any type of power of contract attorney, stating pt. would need the services of an contract attorney to assist with planning. Call back from Yakelin Means/ANGELES, stating she will f/u with pt. post discharge as well as pt's spouse. Yakelin stated that report was made for self/neglect/hoarding; ERIKA updated Yakelin/ANGELES on pt. ,SW's conversation with pt. and she stated she would assist couple as much as possible with resources.
[2019-11-10] MEDS ORDERED: FAMOTIDINE/PF 20 MG/2 ML VIAL IV ONE (11:30)
--- NOTE | 2019-11-10 16:50 | NUR ---
CM Note: [facility] reauthorization CM spoke to Melinda Poon, pt has reauthorization. EMS arranged for today, primary nurse to call [facility] once pt ready to DC. Primary nurse aware to give report once ready to DC pt. CM to cont to follow up.
[2019-11-11] VITALS (7 sets, daily range): BP systolic 112–134; BP diastolic 48–65
[2019-11-11] MEDS: CHLORHEXIDINE GLUCONATE 473 ML MOUTHWASH MM SCH ×4 (13:00→21:00)
--- NOTE | 2019-11-11 15:00 | NUR ---
ONCOLOGY PAGED NEED CLARIFICATION FOR DISCHARGE HOME HEALTH VS REHAB. DR GONSALES NOT ENGLISH TEACHER TODAY. SPOKE TO DR MCCARTHY, DOES NOT KNOW OF CASE WILL RUN BY DR GONSALES.
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
[2019-11-11] MEDS: FAMOTIDINE 20MG TAB 20 MG TAB PO SCH (18:09)
[2019-11-11] MEDS: THIAMINE HCL 100 MG/ML 2ML VIAL IVP SCH (18:09)
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
[2019-11-12 04:00] VITALS: BP 124/50
--- NOTE | 2019-11-12 04:00 | NUR ---
Patient tolerating tube feeding well with no residual. Flushed as ordered. No new variance at this time. She is in stable condition.
[2019-11-12 08:00] VITALS: BP 141/50
[2019-11-12] MEDS: CHLORHEXIDINE GLUCONATE 473 ML MOUTHWASH MM SCH ×4 (09:00→19:23)
[2019-11-12] MEDS: FAMOTIDINE 20MG TAB 20 MG TAB PO SCH (09:57)
[2019-11-12] MEDS: THIAMINE HCL 100 MG/ML 2ML VIAL IVP SCH (09:57)
[2019-11-12] MEDS ORDERED: COMPOUND PO MISCELLANEOUS 1 EACH MISC MISC PRN (10:45)
[2019-11-12 12:00] VITALS: BP 118/55
[2019-11-12 16:00] VITALS: BP 134/75
[2019-11-12 20:00] VITALS: BP 116/63
[2019-11-13] VITALS: BP 116/66
[2019-11-13 03:54] VITALS: BP 127/55
--- NOTE | 2019-11-13 03:55 | NUR ---
patient alert and oriented all night. gave her 40 ml/hr of vital 1.0 tube feeding and gave 200 ml of water flushes every 4 hours at 20:00. midnight, and 04:00 am. informed patient that her will move to room 431. doctor magi, hospitalist, rounded at 21:00. he is aware of patient's portacath placement and about possible discharge to [facility]. I explained to him that [facility] does not conduct chemotherapy. He suggested that the patient go to [facility], but the decision is up to doctor schneider.
[2019-11-13 05:06] LABS: HEMATOCRIT 26.3 % (36-48); MEAN CORPUSCULAR HEMOGLOBIN 29.4 pg (27.0-33.0); MEAN CORPUSCULAR HGB CONC 32.7 g/dL (32.0-36.0); MEAN CORPUSCULAR VOLUME 89.8 fL (79-99); PLATELET COUNT (AUTO) 254 K/uL (130-400); RED BLOOD CELL COUNT(AUTO) 2.93 MIL/uL (4.00-5.50); RED CELL DISTRIBUTION WIDTH 14.3 % (11.0-15.5); WHITE BLOOD COUNT (AUTO) 6.5 K/uL (4.8-10.8)
[2019-11-13 05:24] LABS: ALBUMIN 2.8 g/dL (3.5-5.0); BILIRUBIN,TOTAL 0.3 mg/dL (0.2-1.0); CREATININE 0.6 mg/dL (0.5-1.5); POTASSIUM 3.9 mmol/L (3.5-5.1); TOTAL PROTEIN, SERUM 6.2 g/dL (6.0-8.3)
[2019-11-13 07:31] LABS: EOSINOPHILS % (MANUAL) 5 % (1-6); LYMPHOCYTES % (MANUAL) 15 % (22-44); MAN.DIFF COMMENT-IMPRESSION MANUAL DIFFERENTIAL; MONOCYTES % (MANUAL) 9 % (2-9); SEGMENTED NEUTROPHILS % 71 % (40-70)
[2019-11-13 07:32] LABS: PLATELET MORPHOLOGY COMMENT ADEQUATE
[2019-11-13 08:00] VITALS: BP 117/63
--- NOTE | 2019-11-13 09:00 | NUR ---
ERIKA contacted Yakelin Jeffers/ANGELES for f/u on pt. Yakelin informed that pt's spouse is now a patient as well and that pt. has been referred to [facility], however, referral is pending. Yakelin reported that she has not yet made a home inspection in order to determine if pt. and her spouse can return home in the event that pt. and spouse are not accepted at SNF. Yakelin informed by this worker that she would be updated as to final disposition.
[2019-11-13] MEDS: THIAMINE HCL 100 MG/ML 2ML VIAL IVP SCH (09:07)
[2019-11-13] MEDS: FAMOTIDINE 20MG TAB 20 MG TAB PO SCH (09:07)
[2019-11-13] MEDS: CHLORHEXIDINE GLUCONATE 473 ML MOUTHWASH MM SCH (09:07)
[2019-11-13 11:00] VITALS: BP 112/58
[2019-11-13 16:00] VITALS: BP 134/72
--- NOTE | 2019-11-14 09:15 | NUR ---
Hospice-SW received call from Saturnino Montano/[facility] inquiring about pt. Per Mr. Montano, pt. was referred to hospice by oncologist prior to admission. Mr. Montano also stated that they were [facility] also prior to pt's admission. This worker informed Mr. Montano that information of pt.'s spouse being a [place]dro[place] would be passed on to CM; RUIZ Cuellar made aware .
== END 2019-11-13 18:00 | DRG 841 ==
LOC: EDH 19:59 → EDHIP 21:55 → 3CH 10-28 15:49
PROVIDERS: ADMIT Internal Medicine; ATTEND Internal Medicine
PROC: 07DR3ZX Extraction of Iliac Bone Marrow, Percutaneous Approach, Diagnostic (ICD-10-PCS; principal; 2019-11-08)
PROC: 0JH63WZ Insertion of Totally Implantable Vascular Access Device into Chest Subcutaneous Tissue and Fascia, Percutaneous Approach (ICD-10-PCS; 2019-11-10)
PROC: 02HV33Z Insertion of Infusion Device into Superior Vena Cava, Percutaneous Approach (ICD-10-PCS; 2019-11-10)
PROC: B548ZZA Ultrasonography of Superior Vena Cava, Guidance (ICD-10-PCS; 2019-11-10)
DX: C85.10 Unspecified B-cell lymphoma, unspecified site (principal); E87.0 Hyperosmolality and hypernatremia; N17.9 Acute kidney failure, unspecified; E44.1 Mild protein-calorie malnutrition; E87.1 Hypo-osmolality and hyponatremia; E87.6 Hypokalemia; D64.9 Anemia, unspecified; E86.0 Dehydration; N18.9 Chronic kidney disease, unspecified; E83.39 Other disorders of phosphorus metabolism; I12.9 Hypertensive chronic kidney disease with stage 1 through stage 4 chronic kidney disease, or unspecified chronic kidney disease; E78.5 Hyperlipidemia, unspecified; R53.81 Other malaise; C14.0 Malignant neoplasm of pharynx, unspecified; C32.9 Malignant neoplasm of larynx, unspecified; E11.22 Type 2 diabetes mellitus with diabetic chronic kidney disease; E78.00 Pure hypercholesterolemia, unspecified; E87.5 Hyperkalemia; I25.10 Atherosclerotic heart disease of native coronary artery without angina pectoris; R13.12 Dysphagia, oropharyngeal phase; R47.02 Dysphasia; Z20.828 Contact with and (suspected) exposure to other viral communicable diseases; R62.7 Adult failure to thrive; Z68.22 Body mass index [BMI] 22.0-22.9, adult; Z85.01 Personal history of malignant neoplasm of esophagus; Z74.01 Bed confinement status; Z85.21 Personal history of malignant neoplasm of larynx; Z85.819 Personal history of malignant neoplasm of unspecified site of lip, oral cavity, and pharynx; Z93.1 Gastrostomy status
CPT/HCPCS: 36415; 36561; 38222; 71045; 71260; 74177; 77001; 77012; 80048; 80053; 80202; 81001; 82330; 82550; 82570; 83605; 83735; 83874; 83880; 83970; 84100; 84132; 84133; 84145; 84300; 84443; 84484; 85025; 85610; 85730; 87040; 87088; 87205; 87426; 87807; 88184; 88185; 88305; 88311; 88313; 88341; 88342; 93005; 93306; 93356; 97039; 99156; 99157; 99291; G0378; J0692; J1644; J2250; J2405; J2430; J2543; J3010; J3370; J3411; J3475; J3480; J3490; J7030; J7042; J7050; J7070; J7120; Q9967; U0003